=== PATIENT | female | born 1965 | race Caucasian/White ===

== ENCOUNTER → 2020-03-15 14:20 | Outpatient (CLI) | payer OTHER, MEDICAID, SELFPAY ==
--- NOTE | 2020-03-15 | DI.US.S_ITS ---
PROCEDURE: US ABDOMEN COMPLETE INDICATIONS: DECREASED WHITE BLOOD CELL COUNT TECHNIQUE: Real-time scanning was performed of the abdominal and retroperitoneal organs, with image documentation. COMPARISON: None. FINDINGS: Liver: Liver is normal in size and homogeneous in echotexture, diffusely hyperechoic consistent with fatty infiltration .. Gallbladder: Prior cholecystectomy. Biliary ducts: Intrahepatic bile ducts are non-dilated. Extrahepatic bile duct caliber measures 1.3 mm. Normal is 6-7 mm or less in diameter, or 10 mm or less post-cholecystectomy. Pancreas: Not seen due to bowel gas and fatty infiltration throughout the liver. Spleen: Spleen is normal in size and homogeneous in echotexture. Kidneys: Kidneys are normal in size and echotexture. Right kidney measures 10.8 cm long; left kidney measures 10.2 cm long. No hydronephrosis or nephrolithiasis. No solid masses. Aorta: Visualized aorta is normal in caliber at less than 3 cm. Iliacs: Proximal common iliac arteries are normal in caliber at less than 2.5 cm. IVC: Intrahepatic inferior vena cava is patent. Miscellaneous: No free abdominal fluid. IMPRESSION: Fatty infiltration prominent throughout the liver. Prior cholecystectomy. A definite source of epigastric pain is not found. Portions of the peritoneal space and retroperitoneum were poorly seen due to bowel gas and depending on the clinical status follow-up by CT scanning may become necessary. Dictated by: Hector Salgado M.D. on 03/15/2020 at 15:54 Approved by: Hector Salgado M.D. on 03/15/2020 at 16:10
== END ==
PROVIDERS: PCP Naturopath; Referring Provider Naturopath; Visit Provider Naturopath
DX: D72.819 Decreased white blood cell count, unspecified (principal); R10.816 Epigastric abdominal tenderness; K76.0 Fatty (change of) liver, not elsewhere classified; R74.8 Abnormal levels of other serum enzymes; E03.9 Hypothyroidism, unspecified; Z98.84 Bariatric surgery status; Z90.49 Acquired absence of other specified parts of digestive tract
CPT/HCPCS: 76700

== ENCOUNTER → 2024-11-05 09:24 | Outpatient (CLI) | payer OTHER, SELFPAY ==
--- NOTE | 2024-11-05 09:27 | DI.MRI.S_ITS ---
PROCEDURE: MR BRAIN (IAC) WWO CON INDICATIONS: Hearing Loss TECHNIQUE: Noncontrast sagittal T1 spin echo, axial FLAIR, axial gradient echo, axial diffusion and ADC through the brain. Axial thin-slice 3D CISS, coronal TruFISP, axial T1 spin echo with fat saturation through the internal auditory canals. After the administration of contrast, thin slice axial and coronal T1 spin echo with fat saturation through the internal auditory canals, and axial and coronal and sagittal T1 spin echo with fat saturation through the brain. COMPARISON: None. FINDINGS: Image quality: Excellent. Cerebellopontine angles: No cerebellopontine angle masses. Visualized cranial nerves demonstrate no areas of abnormal signal, enhancement or mass lesion. CSF spaces: Ventricles are normal in size and shape. No extra-axial fluid collections. Basal cisterns are patent. Brain: No intracranial bleeds or mass effects. Aggarwal-white matter interface is intact. No abnormal intracranial enhancement. Diffusion weighted images demonstrate no acute ischemic insults. Brainstem appears normal. Normal intravascular flow voids are present. Skull and face: Calvarial marrow signal is normal. Orbits appear normal. Sinuses: Sinuses and mastoids are clear. IMPRESSION: No visualized cause of hearing loss. No acute intracranial process. Dictated by: Joan Ordonez M.D. on 11/06/2024 at 12:25 Approved by: Joan Ordonez M.D. on 11/06/2024 at 12:28
== END ==
PROVIDERS: PCP Naturopath; Referring Provider Otolaryngology; Visit Provider Otolaryngology
DX: D33.3 Benign neoplasm of cranial nerves (principal); H91.21 Sudden idiopathic hearing loss, right ear
CPT/HCPCS: 70553; A9579